=== PATIENT | female | born 1955 | race Caucasian/White ===

== ENCOUNTER 2021-06-24 12:25 | Outpatient (CLI) | payer MEDICARE | END 2021-06-24 12:26 | disposition home or self-care (01) | LOC: SCSRAD 12:25 | PROVIDERS: ATTEND Family Medicine | DX: M54.50 Low back pain, unspecified (principal); M47.816 Spondylosis without myelopathy or radiculopathy, lumbar region | CPT/HCPCS: 72100 ==